=== PATIENT | male | born 1945 | race Caucasian/White ===

== ENCOUNTER 2017-02-09 09:43 | Emergency (ER) | payer MEDICARE ==
[~2017-02-09] VITALS: Ht 177.8 cm; Wt 112.9 kg
[~2017-02-09 09:43] MED LIST: HCTZ
[2017-02-09 09:45] VITALS: BP 182/95
== END 2017-02-09 11:50 | disposition home or self-care (01) ==
LOC: ED 10:27
DX: Z76.89 Persons encountering health services in other specified circumstances (principal); F17.210 Nicotine dependence, cigarettes, uncomplicated
CPT/HCPCS: 99281

== ENCOUNTER → 2017-08-08 | Outpatient (CLI) | payer MEDICARE | END | disposition home or self-care (01) | LOC: WOUND 09:16 | PROVIDERS: ATTEND Podiatrist Foot & Ankle Surgery | DX: L97.522 Non-pressure chronic ulcer of other part of left foot with fat layer exposed (principal); L97.211 Non-pressure chronic ulcer of right calf limited to breakdown of skin; M14.672 Charcot's joint, left ankle and foot; I10 Essential (primary) hypertension; J44.9 Chronic obstructive pulmonary disease, unspecified; E78.2 Mixed hyperlipidemia; E66.9 Obesity, unspecified; F17.200 Nicotine dependence, unspecified, uncomplicated; F10.10 Alcohol abuse, uncomplicated | CPT/HCPCS: 11042; 97597; 97598 ==

== ENCOUNTER → 2017-08-15 | Outpatient (CLI) | payer MEDICARE | END | disposition home or self-care (01) | LOC: WOUND 14:13 | PROVIDERS: ATTEND Podiatrist Foot & Ankle Surgery | DX: L97.211 Non-pressure chronic ulcer of right calf limited to breakdown of skin (principal); L97.522 Non-pressure chronic ulcer of other part of left foot with fat layer exposed; M14.672 Charcot's joint, left ankle and foot; I10 Essential (primary) hypertension; J44.9 Chronic obstructive pulmonary disease, unspecified; E78.2 Mixed hyperlipidemia; E66.9 Obesity, unspecified; F10.10 Alcohol abuse, uncomplicated; F17.210 Nicotine dependence, cigarettes, uncomplicated; Z68.35 Body mass index [BMI] 35.0-35.9, adult | CPT/HCPCS: 11042; 97597 ==

== ENCOUNTER → 2017-08-22 | Outpatient (CLI) | payer MEDICARE | END | disposition home or self-care (01) | LOC: WOUND 10:56 | PROVIDERS: ATTEND Podiatrist Foot & Ankle Surgery | DX: L97.522 Non-pressure chronic ulcer of other part of left foot with fat layer exposed (principal); L97.211 Non-pressure chronic ulcer of right calf limited to breakdown of skin; M14.672 Charcot's joint, left ankle and foot; J44.9 Chronic obstructive pulmonary disease, unspecified; I10 Essential (primary) hypertension; E78.2 Mixed hyperlipidemia; E66.9 Obesity, unspecified; I89.0 Lymphedema, not elsewhere classified; F17.210 Nicotine dependence, cigarettes, uncomplicated; F10.10 Alcohol abuse, uncomplicated; Z68.35 Body mass index [BMI] 35.0-35.9, adult | CPT/HCPCS: 11042; 97597 ==

== ENCOUNTER → 2017-08-29 | Outpatient (CLI) | payer MEDICARE | END | disposition home or self-care (01) | LOC: WOUND 11:15 | PROVIDERS: ATTEND Podiatrist Foot & Ankle Surgery | DX: L97.522 Non-pressure chronic ulcer of other part of left foot with fat layer exposed (principal); M14.672 Charcot's joint, left ankle and foot; L97.211 Non-pressure chronic ulcer of right calf limited to breakdown of skin; J44.9 Chronic obstructive pulmonary disease, unspecified; E78.2 Mixed hyperlipidemia; E66.9 Obesity, unspecified; F17.210 Nicotine dependence, cigarettes, uncomplicated; Z68.35 Body mass index [BMI] 35.0-35.9, adult; Z72.89 Other problems related to lifestyle | CPT/HCPCS: 11042 ==

== ENCOUNTER → 2017-09-05 | Outpatient (CLI) | payer MEDICARE | END | disposition home or self-care (01) | LOC: WOUND 11:15 | PROVIDERS: ATTEND Podiatrist Foot & Ankle Surgery | DX: L97.522 Non-pressure chronic ulcer of other part of left foot with fat layer exposed (principal); L97.211 Non-pressure chronic ulcer of right calf limited to breakdown of skin; M14.672 Charcot's joint, left ankle and foot; J44.9 Chronic obstructive pulmonary disease, unspecified; E78.2 Mixed hyperlipidemia; E66.9 Obesity, unspecified; I10 Essential (primary) hypertension; I89.0 Lymphedema, not elsewhere classified; F17.210 Nicotine dependence, cigarettes, uncomplicated; F10.10 Alcohol abuse, uncomplicated; Z68.35 Body mass index [BMI] 35.0-35.9, adult; Z72.89 Other problems related to lifestyle | CPT/HCPCS: 11042 ==

== ENCOUNTER 2017-09-12 12:39 | Emergency (ER) | payer MEDICARE ==
[~2017-09-12] VITALS: Ht 177.8 cm; Wt 116.9 kg
[2017-09-12 16:05] LABS: BASOPHILS # (AUTO) 0.02 x10^3/uL (0-0.1); BASOPHILS % (AUTO) 0 % (0-1); EOSINOPHILS # (AUTO) 0.26 x10^3/uL (0-0.4); EOSINOPHILS % (AUTO) 3 % (1-7); LYMPHOCYTES # (AUTO) 1.68 x10^3/uL (1-3.4); LYMPHOCYTES % (AUTO) 19 % (22-44); MD NO; MEAN CORPUSCULAR HEMOGLOBIN 35.8 pg (27.5-34.5); MEAN CORPUSCULAR HGB CONC 33.7 g/dL (33.2-36.2); MEAN PLATELET VOLUME 7.5 fL (7.4-10.4); MONOCYTES # (AUTO) 0.91 x10^3/uL (0.2-0.8); MONOCYTES % (AUTO) 10 % (2-9); NEUTROPHILS # (AUTO) 6.23 x10^3/uL (1.8-6.8); NEUTROPHILS % (AUTO) 68 % (42-75); PLATELET COUNT 201 x10^3/uL (130-400); RED BLOOD COUNT 4.65 x10^6/uL (4.38-5.82)
[2017-09-12 16:16] LABS: ALBUMIN 3.8 g/dL (3.4-5.0); ANION GAP 10 mmol/L (5-15); CALCIUM 9.1 mg/dL (8.5-10.1); CHLORIDE 100 mmol/L (98-107); CREATININE 0.79 mg/dL (0.7-1.3)
[2017-09-12 16:19] LABS: TROPONIN I < 0.015 ng/mL (0.000-0.045)
[2017-09-12 16:37] VITALS: BP 169/83
== END 2017-09-12 17:35 | disposition home or self-care (01) ==
LOC: ED 16:16
DX: I10 Essential (primary) hypertension (principal)
CPT/HCPCS: 36415; 71045; 80048; 82040; 84484; 85025; 93005; 99285

== ENCOUNTER → 2017-09-12 | Outpatient (CLI) | payer MEDICARE | END | disposition home or self-care (01) | LOC: WOUND 11:16 | PROVIDERS: ATTEND Podiatrist Foot & Ankle Surgery | DX: L97.522 Non-pressure chronic ulcer of other part of left foot with fat layer exposed (principal); L97.211 Non-pressure chronic ulcer of right calf limited to breakdown of skin; M14.672 Charcot's joint, left ankle and foot; I10 Essential (primary) hypertension; J44.9 Chronic obstructive pulmonary disease, unspecified; I89.0 Lymphedema, not elsewhere classified; E78.2 Mixed hyperlipidemia; E66.9 Obesity, unspecified; F10.10 Alcohol abuse, uncomplicated; F17.210 Nicotine dependence, cigarettes, uncomplicated; Z68.35 Body mass index [BMI] 35.0-35.9, adult | CPT/HCPCS: 97597; G0463; WOU0463 ==

== ENCOUNTER → 2017-09-19 | Outpatient (CLI) | payer MEDICARE | END | disposition home or self-care (01) | LOC: WOUND 11:00 | PROVIDERS: ATTEND Podiatrist Foot & Ankle Surgery | DX: L97.522 Non-pressure chronic ulcer of other part of left foot with fat layer exposed (principal); L97.211 Non-pressure chronic ulcer of right calf limited to breakdown of skin; M14.672 Charcot's joint, left ankle and foot; F10.10 Alcohol abuse, uncomplicated; J44.9 Chronic obstructive pulmonary disease, unspecified; I10 Essential (primary) hypertension; I89.0 Lymphedema, not elsewhere classified; E78.2 Mixed hyperlipidemia; F17.210 Nicotine dependence, cigarettes, uncomplicated; E66.9 Obesity, unspecified; Z68.35 Body mass index [BMI] 35.0-35.9, adult; Z72.89 Other problems related to lifestyle | CPT/HCPCS: 11042 ==

== ENCOUNTER → 2017-09-26 | Outpatient (CLI) | payer MEDICARE | END | disposition home or self-care (01) | LOC: WOUND 11:14 | PROVIDERS: ATTEND Podiatrist Foot & Ankle Surgery | DX: L97.522 Non-pressure chronic ulcer of other part of left foot with fat layer exposed (principal); L97.211 Non-pressure chronic ulcer of right calf limited to breakdown of skin; M14.672 Charcot's joint, left ankle and foot; J44.9 Chronic obstructive pulmonary disease, unspecified; I10 Essential (primary) hypertension; I89.0 Lymphedema, not elsewhere classified; E78.2 Mixed hyperlipidemia; E66.9 Obesity, unspecified; F10.10 Alcohol abuse, uncomplicated; F17.210 Nicotine dependence, cigarettes, uncomplicated; Z72.89 Other problems related to lifestyle; Z68.35 Body mass index [BMI] 35.0-35.9, adult | CPT/HCPCS: 97597 ==

== ENCOUNTER → 2017-10-03 | Outpatient (CLI) | payer MEDICARE | END | disposition home or self-care (01) | LOC: WOUND 10:53 | PROVIDERS: ATTEND Podiatrist Foot & Ankle Surgery | DX: L97.522 Non-pressure chronic ulcer of other part of left foot with fat layer exposed (principal); L97.211 Non-pressure chronic ulcer of right calf limited to breakdown of skin; M14.672 Charcot's joint, left ankle and foot; I10 Essential (primary) hypertension; J44.9 Chronic obstructive pulmonary disease, unspecified; E78.2 Mixed hyperlipidemia; F10.10 Alcohol abuse, uncomplicated; E66.9 Obesity, unspecified; F17.210 Nicotine dependence, cigarettes, uncomplicated; I89.0 Lymphedema, not elsewhere classified; L84 Corns and callosities; Z68.35 Body mass index [BMI] 35.0-35.9, adult; Z72.89 Other problems related to lifestyle | CPT/HCPCS: 97597 ==

== ENCOUNTER → 2017-10-10 | Outpatient (CLI) | payer MEDICARE | END | disposition home or self-care (01) | LOC: WOUND 11:14 | PROVIDERS: ATTEND Podiatrist Foot & Ankle Surgery | DX: L97.522 Non-pressure chronic ulcer of other part of left foot with fat layer exposed (principal); J44.9 Chronic obstructive pulmonary disease, unspecified; E78.2 Mixed hyperlipidemia; I10 Essential (primary) hypertension; L84 Corns and callosities; E66.9 Obesity, unspecified; I89.0 Lymphedema, not elsewhere classified; M14.672 Charcot's joint, left ankle and foot; F10.10 Alcohol abuse, uncomplicated; Z72.89 Other problems related to lifestyle; Z68.35 Body mass index [BMI] 35.0-35.9, adult | CPT/HCPCS: 11042 ==

== ENCOUNTER → 2017-10-17 | Outpatient (CLI) | payer MEDICARE | END | disposition home or self-care (01) | LOC: WOUND 10:42 | PROVIDERS: ATTEND Podiatrist Foot & Ankle Surgery | DX: L97.522 Non-pressure chronic ulcer of other part of left foot with fat layer exposed (principal); I10 Essential (primary) hypertension; J44.9 Chronic obstructive pulmonary disease, unspecified; E78.2 Mixed hyperlipidemia; E66.9 Obesity, unspecified; M14.672 Charcot's joint, left ankle and foot; L84 Corns and callosities; I89.0 Lymphedema, not elsewhere classified; F10.10 Alcohol abuse, uncomplicated; F17.210 Nicotine dependence, cigarettes, uncomplicated; Z68.35 Body mass index [BMI] 35.0-35.9, adult | CPT/HCPCS: 97597 ==

== ENCOUNTER → 2017-10-24 | Outpatient (CLI) | payer MEDICARE | END | disposition home or self-care (01) | LOC: WOUND 11:07 | PROVIDERS: ATTEND Podiatrist Foot & Ankle Surgery | DX: E11.621 Type 2 diabetes mellitus with foot ulcer (principal); L97.522 Non-pressure chronic ulcer of other part of left foot with fat layer exposed; E11.610 Type 2 diabetes mellitus with diabetic neuropathic arthropathy; J44.9 Chronic obstructive pulmonary disease, unspecified; E78.5 Hyperlipidemia, unspecified; I10 Essential (primary) hypertension; L84 Corns and callosities; I89.0 Lymphedema, not elsewhere classified; E66.9 Obesity, unspecified; F17.210 Nicotine dependence, cigarettes, uncomplicated; F10.10 Alcohol abuse, uncomplicated; Z68.35 Body mass index [BMI] 35.0-35.9, adult | CPT/HCPCS: 97597 ==

== ENCOUNTER → 2017-10-31 | Outpatient (CLI) | payer MEDICARE | END | disposition home or self-care (01) | LOC: WOUND 11:00 | PROVIDERS: ATTEND Podiatrist Foot & Ankle Surgery | DX: E11.621 Type 2 diabetes mellitus with foot ulcer (principal); L97.522 Non-pressure chronic ulcer of other part of left foot with fat layer exposed; E11.610 Type 2 diabetes mellitus with diabetic neuropathic arthropathy; J44.9 Chronic obstructive pulmonary disease, unspecified; I10 Essential (primary) hypertension; E78.5 Hyperlipidemia, unspecified; E66.9 Obesity, unspecified; E78.2 Mixed hyperlipidemia; F17.210 Nicotine dependence, cigarettes, uncomplicated; F10.10 Alcohol abuse, uncomplicated; Z68.35 Body mass index [BMI] 35.0-35.9, adult | CPT/HCPCS: 97597 ==

== ENCOUNTER → 2017-11-07 | Outpatient (CLI) | payer MEDICARE | END | disposition home or self-care (01) | LOC: WOUND 11:21 | PROVIDERS: ATTEND Podiatrist Foot & Ankle Surgery | DX: E11.621 Type 2 diabetes mellitus with foot ulcer (principal); L97.522 Non-pressure chronic ulcer of other part of left foot with fat layer exposed; F10.10 Alcohol abuse, uncomplicated; J44.9 Chronic obstructive pulmonary disease, unspecified; I10 Essential (primary) hypertension; E78.2 Mixed hyperlipidemia; E66.9 Obesity, unspecified; E11.610 Type 2 diabetes mellitus with diabetic neuropathic arthropathy; I89.0 Lymphedema, not elsewhere classified; F17.210 Nicotine dependence, cigarettes, uncomplicated; Z72.89 Other problems related to lifestyle; Z68.35 Body mass index [BMI] 35.0-35.9, adult | CPT/HCPCS: 11042 ==

== ENCOUNTER → 2017-11-14 | Outpatient (CLI) | payer MEDICARE | END | disposition home or self-care (01) | LOC: WOUND 11:00 | PROVIDERS: ATTEND Podiatrist Foot & Ankle Surgery | DX: E11.621 Type 2 diabetes mellitus with foot ulcer (principal); L97.522 Non-pressure chronic ulcer of other part of left foot with fat layer exposed; E11.610 Type 2 diabetes mellitus with diabetic neuropathic arthropathy; J44.9 Chronic obstructive pulmonary disease, unspecified; I10 Essential (primary) hypertension; I89.0 Lymphedema, not elsewhere classified; E78.2 Mixed hyperlipidemia; E66.9 Obesity, unspecified; F17.210 Nicotine dependence, cigarettes, uncomplicated; F10.10 Alcohol abuse, uncomplicated; Z72.89 Other problems related to lifestyle | CPT/HCPCS: 11042; 87070; 87077; 87186; 87205 ==

== ENCOUNTER → 2017-11-21 | Outpatient (CLI) | payer MEDICARE | END | disposition home or self-care (01) | LOC: WOUND 13:58 | PROVIDERS: ATTEND Podiatrist Foot & Ankle Surgery | DX: E11.621 Type 2 diabetes mellitus with foot ulcer (principal); L97.522 Non-pressure chronic ulcer of other part of left foot with fat layer exposed; E11.610 Type 2 diabetes mellitus with diabetic neuropathic arthropathy; I10 Essential (primary) hypertension; J44.9 Chronic obstructive pulmonary disease, unspecified; E78.5 Hyperlipidemia, unspecified; G47.00 Insomnia, unspecified; E66.9 Obesity, unspecified; I89.0 Lymphedema, not elsewhere classified; F17.210 Nicotine dependence, cigarettes, uncomplicated; Z68.35 Body mass index [BMI] 35.0-35.9, adult | CPT/HCPCS: 11042 ==

== ENCOUNTER → 2017-11-28 | Outpatient (CLI) | payer MEDICARE | END | disposition home or self-care (01) | LOC: WOUND 08:30 | PROVIDERS: ATTEND Podiatrist Foot & Ankle Surgery | DX: E11.621 Type 2 diabetes mellitus with foot ulcer (principal); L97.522 Non-pressure chronic ulcer of other part of left foot with fat layer exposed; J44.9 Chronic obstructive pulmonary disease, unspecified; I10 Essential (primary) hypertension; E78.5 Hyperlipidemia, unspecified; I89.0 Lymphedema, not elsewhere classified; E11.610 Type 2 diabetes mellitus with diabetic neuropathic arthropathy; E78.2 Mixed hyperlipidemia; E66.9 Obesity, unspecified; F17.210 Nicotine dependence, cigarettes, uncomplicated; F10.10 Alcohol abuse, uncomplicated; Z68.35 Body mass index [BMI] 35.0-35.9, adult | CPT/HCPCS: 11042 ==

== ENCOUNTER → 2017-12-05 | Outpatient (CLI) | payer MEDICARE | END | disposition home or self-care (01) | LOC: WOUND 09:15 | PROVIDERS: ATTEND Podiatrist Foot & Ankle Surgery | DX: E11.621 Type 2 diabetes mellitus with foot ulcer (principal); L97.522 Non-pressure chronic ulcer of other part of left foot with fat layer exposed; J44.9 Chronic obstructive pulmonary disease, unspecified; I10 Essential (primary) hypertension; E78.5 Hyperlipidemia, unspecified; I89.0 Lymphedema, not elsewhere classified; E78.2 Mixed hyperlipidemia; E66.9 Obesity, unspecified; E11.610 Type 2 diabetes mellitus with diabetic neuropathic arthropathy; F10.10 Alcohol abuse, uncomplicated; F17.210 Nicotine dependence, cigarettes, uncomplicated; Z68.35 Body mass index [BMI] 35.0-35.9, adult | CPT/HCPCS: 11042 ==

== ENCOUNTER → 2017-12-19 | Outpatient (CLI) | payer MEDICARE | END | disposition home or self-care (01) | LOC: WOUND 10:29 | PROVIDERS: ATTEND Podiatrist Foot & Ankle Surgery | DX: L97.522 Non-pressure chronic ulcer of other part of left foot with fat layer exposed (principal); J44.9 Chronic obstructive pulmonary disease, unspecified; I10 Essential (primary) hypertension; I89.0 Lymphedema, not elsewhere classified; E78.2 Mixed hyperlipidemia; E66.9 Obesity, unspecified; E11.610 Type 2 diabetes mellitus with diabetic neuropathic arthropathy; F10.10 Alcohol abuse, uncomplicated; F17.210 Nicotine dependence, cigarettes, uncomplicated; Z68.35 Body mass index [BMI] 35.0-35.9, adult; Z72.89 Other problems related to lifestyle | CPT/HCPCS: 11042; 87070; 87077; 87186; 87205 ==

== ENCOUNTER → 2017-12-26 | Outpatient (CLI) | payer MEDICARE | END | disposition home or self-care (01) | LOC: WOUND 11:08 | PROVIDERS: ATTEND Podiatrist Foot & Ankle Surgery | DX: E11.622 Type 2 diabetes mellitus with other skin ulcer (principal); L97.211 Non-pressure chronic ulcer of right calf limited to breakdown of skin; E11.621 Type 2 diabetes mellitus with foot ulcer; L97.522 Non-pressure chronic ulcer of other part of left foot with fat layer exposed; J44.9 Chronic obstructive pulmonary disease, unspecified; I10 Essential (primary) hypertension; I89.0 Lymphedema, not elsewhere classified; E78.2 Mixed hyperlipidemia; E11.610 Type 2 diabetes mellitus with diabetic neuropathic arthropathy; F17.210 Nicotine dependence, cigarettes, uncomplicated; F10.10 Alcohol abuse, uncomplicated; E66.9 Obesity, unspecified; Z68.35 Body mass index [BMI] 35.0-35.9, adult; Z72.89 Other problems related to lifestyle | CPT/HCPCS: 97597; 97598 ==

== ENCOUNTER → 2017-12-31 | Outpatient (CLI) | payer MEDICARE | END | disposition home or self-care (01) | LOC: WOUND 10:41 | PROVIDERS: ATTEND Internal Medicine Infectious Disease | DX: E11.621 Type 2 diabetes mellitus with foot ulcer (principal); L97.522 Non-pressure chronic ulcer of other part of left foot with fat layer exposed; E11.622 Type 2 diabetes mellitus with other skin ulcer; L97.211 Non-pressure chronic ulcer of right calf limited to breakdown of skin; E11.610 Type 2 diabetes mellitus with diabetic neuropathic arthropathy; I89.0 Lymphedema, not elsewhere classified; J44.9 Chronic obstructive pulmonary disease, unspecified; I10 Essential (primary) hypertension; E78.2 Mixed hyperlipidemia; E66.9 Obesity, unspecified; E78.5 Hyperlipidemia, unspecified; F10.10 Alcohol abuse, uncomplicated; F17.210 Nicotine dependence, cigarettes, uncomplicated; Z72.89 Other problems related to lifestyle | CPT/HCPCS: 97597 ==

== ENCOUNTER → 2018-01-09 | Outpatient (CLI) | payer MEDICARE | END | disposition home or self-care (01) | LOC: WOUND 11:10 | PROVIDERS: ATTEND Podiatrist Foot & Ankle Surgery | DX: L97.522 Non-pressure chronic ulcer of other part of left foot with fat layer exposed (principal); L97.211 Non-pressure chronic ulcer of right calf limited to breakdown of skin; I89.0 Lymphedema, not elsewhere classified; J44.9 Chronic obstructive pulmonary disease, unspecified; E66.9 Obesity, unspecified; E11.610 Type 2 diabetes mellitus with diabetic neuropathic arthropathy; E78.2 Mixed hyperlipidemia; F17.210 Nicotine dependence, cigarettes, uncomplicated; F10.10 Alcohol abuse, uncomplicated; Z68.35 Body mass index [BMI] 35.0-35.9, adult | CPT/HCPCS: 97597 ==

== ENCOUNTER → 2018-01-23 | Outpatient (CLI) | payer MEDICARE | END | disposition home or self-care (01) | LOC: WOUND 09:19 | PROVIDERS: ATTEND Podiatrist Foot & Ankle Surgery | DX: E11.621 Type 2 diabetes mellitus with foot ulcer (principal); L97.522 Non-pressure chronic ulcer of other part of left foot with fat layer exposed; I89.0 Lymphedema, not elsewhere classified; J44.9 Chronic obstructive pulmonary disease, unspecified; I10 Essential (primary) hypertension; E78.2 Mixed hyperlipidemia; E66.9 Obesity, unspecified; E11.610 Type 2 diabetes mellitus with diabetic neuropathic arthropathy; F10.10 Alcohol abuse, uncomplicated; F17.210 Nicotine dependence, cigarettes, uncomplicated; Z68.35 Body mass index [BMI] 35.0-35.9, adult | CPT/HCPCS: 15275; Q4132 ==

== ENCOUNTER → 2018-02-06 | Outpatient (CLI) | payer MEDICARE | END | disposition home or self-care (01) | LOC: WOUND 09:30 | PROVIDERS: ATTEND Podiatrist Foot & Ankle Surgery | DX: E11.621 Type 2 diabetes mellitus with foot ulcer (principal); L97.522 Non-pressure chronic ulcer of other part of left foot with fat layer exposed; E11.622 Type 2 diabetes mellitus with other skin ulcer; L97.211 Non-pressure chronic ulcer of right calf limited to breakdown of skin; I89.0 Lymphedema, not elsewhere classified; J44.9 Chronic obstructive pulmonary disease, unspecified; I10 Essential (primary) hypertension; E78.2 Mixed hyperlipidemia; E11.610 Type 2 diabetes mellitus with diabetic neuropathic arthropathy; E66.9 Obesity, unspecified; F17.210 Nicotine dependence, cigarettes, uncomplicated; F10.10 Alcohol abuse, uncomplicated; Z68.35 Body mass index [BMI] 35.0-35.9, adult | CPT/HCPCS: 15275; Q4133 ==

== ENCOUNTER → 2018-02-13 | Outpatient (CLI) | payer MEDICARE | END | disposition home or self-care (01) | LOC: WOUND 10:00 | PROVIDERS: ATTEND Podiatrist Foot & Ankle Surgery | DX: E11.621 Type 2 diabetes mellitus with foot ulcer (principal); L97.522 Non-pressure chronic ulcer of other part of left foot with fat layer exposed; E11.622 Type 2 diabetes mellitus with other skin ulcer; L97.211 Non-pressure chronic ulcer of right calf limited to breakdown of skin; I89.0 Lymphedema, not elsewhere classified; E11.610 Type 2 diabetes mellitus with diabetic neuropathic arthropathy; J44.9 Chronic obstructive pulmonary disease, unspecified; I10 Essential (primary) hypertension; E78.2 Mixed hyperlipidemia; E66.9 Obesity, unspecified; F10.10 Alcohol abuse, uncomplicated; F17.210 Nicotine dependence, cigarettes, uncomplicated; Z68.35 Body mass index [BMI] 35.0-35.9, adult | CPT/HCPCS: 15275; Q4133 ==

== ENCOUNTER → 2018-02-20 | Outpatient (CLI) | payer MEDICARE | END | disposition home or self-care (01) | LOC: WOUND 09:49 | PROVIDERS: ATTEND Podiatrist Foot & Ankle Surgery | DX: E11.621 Type 2 diabetes mellitus with foot ulcer (principal); L97.522 Non-pressure chronic ulcer of other part of left foot with fat layer exposed; E11.622 Type 2 diabetes mellitus with other skin ulcer; L97.211 Non-pressure chronic ulcer of right calf limited to breakdown of skin; I89.0 Lymphedema, not elsewhere classified; E11.610 Type 2 diabetes mellitus with diabetic neuropathic arthropathy; E78.2 Mixed hyperlipidemia; E66.9 Obesity, unspecified; G47.00 Insomnia, unspecified; J44.9 Chronic obstructive pulmonary disease, unspecified; I10 Essential (primary) hypertension; F10.10 Alcohol abuse, uncomplicated; F17.210 Nicotine dependence, cigarettes, uncomplicated; Z68.35 Body mass index [BMI] 35.0-35.9, adult | CPT/HCPCS: 15275; Q4133 ==

== ENCOUNTER → 2018-02-27 | Outpatient (CLI) | payer MEDICARE | END | disposition home or self-care (01) | LOC: WOUND 10:29 | PROVIDERS: ATTEND Podiatrist Foot & Ankle Surgery | DX: E11.621 Type 2 diabetes mellitus with foot ulcer (principal); L97.522 Non-pressure chronic ulcer of other part of left foot with fat layer exposed; L84 Corns and callosities; E11.622 Type 2 diabetes mellitus with other skin ulcer; L97.211 Non-pressure chronic ulcer of right calf limited to breakdown of skin; I89.0 Lymphedema, not elsewhere classified; E11.610 Type 2 diabetes mellitus with diabetic neuropathic arthropathy; E78.2 Mixed hyperlipidemia; E66.9 Obesity, unspecified; G47.00 Insomnia, unspecified; J44.9 Chronic obstructive pulmonary disease, unspecified; I10 Essential (primary) hypertension; F10.10 Alcohol abuse, uncomplicated; F17.210 Nicotine dependence, cigarettes, uncomplicated; Z68.35 Body mass index [BMI] 35.0-35.9, adult | CPT/HCPCS: 97597 ==

== ENCOUNTER → 2018-03-06 | Outpatient (CLI) | payer MEDICARE | END | disposition home or self-care (01) | LOC: WOUND 10:00 | PROVIDERS: ATTEND Podiatrist Foot & Ankle Surgery | DX: E11.621 Type 2 diabetes mellitus with foot ulcer (principal); L97.522 Non-pressure chronic ulcer of other part of left foot with fat layer exposed; E11.622 Type 2 diabetes mellitus with other skin ulcer; L97.221 Non-pressure chronic ulcer of left calf limited to breakdown of skin; I89.0 Lymphedema, not elsewhere classified; J44.9 Chronic obstructive pulmonary disease, unspecified; E78.2 Mixed hyperlipidemia; E66.9 Obesity, unspecified; E11.610 Type 2 diabetes mellitus with diabetic neuropathic arthropathy; F10.10 Alcohol abuse, uncomplicated; F17.210 Nicotine dependence, cigarettes, uncomplicated; Z68.35 Body mass index [BMI] 35.0-35.9, adult | CPT/HCPCS: 11042 ==

== ENCOUNTER → 2018-03-13 | Outpatient (CLI) | payer MEDICARE | END | disposition home or self-care (01) | LOC: WOUND 10:00 | PROVIDERS: ATTEND Podiatrist Foot & Ankle Surgery | DX: E11.621 Type 2 diabetes mellitus with foot ulcer (principal); L97.522 Non-pressure chronic ulcer of other part of left foot with fat layer exposed; E11.622 Type 2 diabetes mellitus with other skin ulcer; L97.221 Non-pressure chronic ulcer of left calf limited to breakdown of skin; I89.0 Lymphedema, not elsewhere classified; J44.9 Chronic obstructive pulmonary disease, unspecified; E78.2 Mixed hyperlipidemia; E66.9 Obesity, unspecified; E11.610 Type 2 diabetes mellitus with diabetic neuropathic arthropathy; F10.10 Alcohol abuse, uncomplicated; F17.210 Nicotine dependence, cigarettes, uncomplicated; Z68.35 Body mass index [BMI] 35.0-35.9, adult | CPT/HCPCS: 11042 ==

== ENCOUNTER → 2018-03-27 | Outpatient (CLI) | payer MEDICARE | END | disposition home or self-care (01) | LOC: WOUND 10:35 | PROVIDERS: ATTEND Podiatrist Foot & Ankle Surgery | DX: E11.621 Type 2 diabetes mellitus with foot ulcer (principal); L97.522 Non-pressure chronic ulcer of other part of left foot with fat layer exposed; E11.622 Type 2 diabetes mellitus with other skin ulcer; L97.211 Non-pressure chronic ulcer of right calf limited to breakdown of skin; I89.0 Lymphedema, not elsewhere classified; E11.610 Type 2 diabetes mellitus with diabetic neuropathic arthropathy; G89.4 Chronic pain syndrome; J44.9 Chronic obstructive pulmonary disease, unspecified; E11.42 Type 2 diabetes mellitus with diabetic polyneuropathy; E78.2 Mixed hyperlipidemia; E66.9 Obesity, unspecified; L84 Corns and callosities; F17.210 Nicotine dependence, cigarettes, uncomplicated; F10.10 Alcohol abuse, uncomplicated; Z68.35 Body mass index [BMI] 35.0-35.9, adult | CPT/HCPCS: 97597 ==

== ENCOUNTER 2019-07-16 09:34 | Outpatient (CLI) | payer MEDICARE ==
[2019-07-19] MEDS ORDERED: DOXY-162 PO (08:51)
[2019-07-19] MEDS ORDERED: CARV3.1212 PO (08:51)
[2019-07-19] MEDS ORDERED: LISI-170 PO (08:51)
== END 2019-07-16 23:59 | disposition home or self-care (01) ==
LOC: WOUND 09:34
PROVIDERS: ATTEND Podiatrist Foot & Ankle Surgery
DX: I87.333 Chronic venous hypertension (idiopathic) with ulcer and inflammation of bilateral lower extremity (principal); L97.222 Non-pressure chronic ulcer of left calf with fat layer exposed; L97.212 Non-pressure chronic ulcer of right calf with fat layer exposed; L97.522 Non-pressure chronic ulcer of other part of left foot with fat layer exposed; M14.672 Charcot's joint, left ankle and foot; I89.0 Lymphedema, not elsewhere classified; J44.1 Chronic obstructive pulmonary disease with (acute) exacerbation; I11.0 Hypertensive heart disease with heart failure; I50.33 Acute on chronic diastolic (congestive) heart failure; E66.01 Morbid (severe) obesity due to excess calories; F10.10 Alcohol abuse, uncomplicated; F17.210 Nicotine dependence, cigarettes, uncomplicated; E78.2 Mixed hyperlipidemia; G47.00 Insomnia, unspecified; E44.1 Mild protein-calorie malnutrition; L84 Corns and callosities; R32 Unspecified urinary incontinence; R26.9 Unspecified abnormalities of gait and mobility; Z68.34 Body mass index [BMI] 34.0-34.9, adult
CPT/HCPCS: G0463

== ENCOUNTER 2019-07-21 20:28 | Inpatient (IN) | payer MEDICARE ==
[~2019-07-21] VITALS: Ht 177.8 cm; Wt 108.4 kg
[~2019-07-21 20:28] MED LIST changes: +CARV3.1212 PO; +DOXY-162 PO; +LISI-170 PO
--- NOTE | 2019-07-21 20:53 | NUR ---
BIB EMS FROM HOME. PT WAS D/C FROM [facility] ON WEDNESDAY 10/11 CELLULITIS. PT LIVES ALONE WITH FAMILY NEAR BY. PT WAS NOT ANSWERING PHONE AND FAMILY WENT TO CHECK ON HIM. PT HAD SOILED HIMSELF AND WAS SOMEWHAT CONFUSED. 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 PT WITH SEVERE LOWER EXT. EDEMA AND SKIN THAT LOOKS LIKE LIZZARD SKIN. DRESSING OVER RIGHT LOWER LEG. PT CLEANED OF DRIED STOOL AND CHANGED INTO GOWN. CLOTHES WERE SOILED WITH BOTH STOOL AND DRIED URINE. PT IS PLEASANT AND COOPERATIVE, DENIES PAIN. VSS, NADN. AUDIBLES RALES NOTED. CALL LIGHT W/I REACH SBAR RPT TO BRIEN RODAS.
[2019-07-21] MEDS ORDERED: hydrALAzine 20 MG/ML, 1ML ONE (21:13)
--- NOTE | 2019-07-21 21:28 | NUR ---
CXR AT BS. PHLEB AT BS. MEDS PER NOV. FAMILY AT BS. ALEX PROVIDED. CALL LIGHT PEPITO.
[2019-07-21] MEDS ORDERED: SODIUM CHLORIDE FLUSH 10ML SYR IVF ONE (21:30)
[2019-07-21] MEDS ORDERED: SODIUM CHLORIDE 0.9% 1,000ML IVBOLUS ONE (21:30)
[2019-07-21] MEDS ORDERED: hydrALAzine 20 MG/ML, 1ML IV ONE (21:30)
[2019-07-21 21:36] LABS: MEAN CORPUSCULAR HEMOGLOBIN 35.5 pg (27.5-34.5); MEAN CORPUSCULAR HGB CONC 33.1 g/dL (33.2-36.2); MEAN CORPUSCULAR VOLUME 107.4 fL (81-97); MEAN PLATELET VOLUME 7.5 fL (7.4-10.4); PLATELET COUNT 162 x10^3/uL (130-400); RED BLOOD COUNT 4.04 x10^6/uL (4.38-5.82); RED CELL DISTRIBUTION WIDTH 14.9 % (9.4-14.8)
[2019-07-21 21:42] LABS: ALANINE AMINOTRANSFERASE 21 U/L (12-78); ALBUMIN 3.4 g/dL (3.4-5.0); ANION GAP 7 mmol/L (5-15); CALCIUM 8.7 mg/dL (8.5-10.1); CHLORIDE 100 mmol/L (98-107); CREATININE 0.85 mg/dL (0.7-1.3)
[2019-07-21 21:46] LABS: ALKALINE PHOSPHATASE 32 U/L (45-117); BILIRUBIN,TOTAL 0.7 mg/dL (0.2-1.0); TOTAL PROTEIN 7.9 g/dL (6.4-8.2); TROPONIN I < 0.015 ng/mL (0.000-0.045)
--- NOTE | 2019-07-21 21:58 | NUR ---
DRESSING REMOVED FROM RLE. STATES DRESSING HAS NOT BEEN CHANGED SINCE DC FROM HERE ON 07/18/19. WEEPING NOTED, DRESSING SATURATED & CRUSTED TO FOOT.
[2019-07-21 22:28] LABS: MD YES
[2019-07-21 22:31] LABS: BAND#(MANUAL) 0.05 x10^3/uL; BANDS%(MANUAL) 1 % (0-7); BASOS#(MANUAL) 0.05 x10^3/uL (0-0.1); BASOS% (MANUAL) 1 % (0-1); EOS#(MANUAL) 0.05 x10^3/uL (0.0-0.4); EOS% (MANUAL) 1 % (1-7); LYMPH#(MANUAL) 0.74 x10^3/uL (1-3.4); LYMPHS% (MANUAL) 15 % (22-44); MONOS#(MANUAL) 1.08 x10^3/uL (0.3-2.7); MONOS% (MANUAL) 22 % (2-9); SEG#(MANUAL) 2.94 x10^3/uL (1.8-6.8); SEGS% (MANUAL) 60 % (42-75)
[2019-07-21 22:32] LABS: <PLATELET ESTIMATE> ADEQUATE; <PLT MORPHOLOGY> NORMAL PLT MORPH; ANISOCYTOSIS 1+
[2019-07-22] MEDS ORDERED: SODIUM CHLORIDE FLUSH 10ML SYR IVF PRN (01:30)
[2019-07-22 02:26] VITALS: BP 193/83
[2019-07-22] MEDS ORDERED: THIAMINE 200 MG in SODIUM CHLORIDE 0.9% 50 ML IV ONE (02:30)
[2019-07-22] MEDS ORDERED: ONDANSETRON 2MG/ML, 2ML IVPush PRN (02:30)
[2019-07-22] MEDS ORDERED: ACETAMINOPHEN 325 MG TABLET PO PRN (02:30)
[2019-07-22] MEDS ORDERED: hydrALAzine 20 MG/ML, 1ML IVPush PRN (02:30)
[2019-07-22] MEDS ORDERED: ALBUTEROL SULFATE 2.5 MG/3 ML NPPB PRN (03:00)
[2019-07-22] MEDS ORDERED: FUROSEMIDE 20 MG/2 ML ONE (03:13)
[2019-07-22] MEDS ORDERED: FUROSEMIDE 20 MG/2 ML IV ONE (03:30)
[2019-07-22] MEDS ORDERED: MAGNESIUM SULFATE PMX 2GM/50ML 50 ML IV ONE (03:30)
[2019-07-22 03:33] VITALS: BP 173/80
[2019-07-22] MEDS: DOXYCYCLINE 100 MG in DEXTROSE 5% 250 ML IV SCH ×2 (03:35→14:46)
[2019-07-22 04:27] LABS: MICROSCOPIC NOT IND
[2019-07-22 04:37] LABS: CULTURE INDICATED? NO
[2019-07-22 04:38] LABS: AMPHETAMINE SCREEN, URINE Negative (Negative); BARBITURATE SCREEN, URINE Negative (Negative); BENZODIAZEPINE SCREEN, URINE Negative (Negative); CANNABINOID SCREEN, URINE Negative (Negative); COCAINE SCREEN, URINE Negative (Negative); METHADONE SCREEN, URINE Negative (Negative); OPIATE SCREEN, URINE Negative (Negative)
[2019-07-22 04:45] VITALS: BP 154/79
[2019-07-22] MEDS: CARVEDILOL 3.125 MG TABLET PO SCH ×2 (06:17→17:04)
[2019-07-22] MEDS ORDERED: FUROSEMIDE 20 MG/2 ML IV SCH (07:30)
[2019-07-22] MEDS: SENNA/DOCUSATE TABLET PO SCH (08:03)
[2019-07-22] MEDS: LISINOPRIL 20 MG TABLET PO SCH (08:03)
[2019-07-22] MEDS: THIAMINE 100MG TABLET PO SCH (08:03)
[2019-07-22] MEDS: ENOXAPARIN 40 MG/0.4 ML SQ SCH (08:04)
[2019-07-22 08:45] VITALS: BP 150/80
[2019-07-22] MEDS: FOLIC ACID 1 MG TABLET PO SCH (11:56)
[2019-07-22] MEDS: MAGNESIUM OXIDE 400 MG TABLET PO SCH ×2 (11:57→20:53)
[2019-07-22 15:00] VITALS: BP 122/72
[2019-07-22] MEDS: FUROSEMIDE 40 MG/4 ML IV SCH (17:04)
[2019-07-22 19:12] VITALS: BP 116/71
[2019-07-23 00:17] VITALS: BP 135/67
[2019-07-23] MEDS: DOXYCYCLINE 100 MG in DEXTROSE 5% 250 ML IV SCH (02:46)
[2019-07-23 05:28] VITALS: BP 117/64
[2019-07-23] MEDS: CARVEDILOL 3.125 MG TABLET PO SCH ×2 (05:31→17:54)
[2019-07-23 05:56] LABS: HCT (SEDRATE) 41.6 % (39.2-51.8)
[2019-07-23 05:58] LABS: ALANINE AMINOTRANSFERASE 20 U/L (12-78); ALBUMIN 3.3 g/dL (3.4-5.0); ANION GAP 6 mmol/L (5-15); CALCIUM 8.6 mg/dL (8.5-10.1); CHLORIDE 103 mmol/L (98-107); CREATININE 0.96 mg/dL (0.7-1.3)
[2019-07-23 06:05] LABS: ALKALINE PHOSPHATASE 40 U/L (45-117); BILIRUBIN,TOTAL 0.8 mg/dL (0.2-1.0); TOTAL PROTEIN 7.5 g/dL (6.4-8.2)
[2019-07-23] MEDS: FUROSEMIDE 40 MG/4 ML IV SCH ×2 (07:30→17:54)
[2019-07-23] MEDS: SENNA/DOCUSATE TABLET PO SCH (09:00)
[2019-07-23] MEDS: LISINOPRIL 20 MG TABLET PO SCH (09:00)
[2019-07-23 09:40] VITALS: BP 90/48
[2019-07-23] MEDS ORDERED: POTASSIUM CHLORIDE 20 MEQ TAB.ER.PRT ONE (09:49)
[2019-07-23] MEDS: MAGNESIUM OXIDE 400 MG TABLET PO SCH ×2 (09:55→20:23)
[2019-07-23] MEDS: ENOXAPARIN 40 MG/0.4 ML SQ SCH (09:55)
[2019-07-23] MEDS: THIAMINE 100MG TABLET PO SCH (09:55)
[2019-07-23] MEDS: POTASSIUM CHLORIDE 20 MEQ TAB.ER.PRT PO SCH ×2 (09:56→17:54)
[2019-07-23] MEDS: DOXYCYCLINE 100MG TABLET PO SCH ×2 (09:56→20:23)
[2019-07-23] MEDS: FOLIC ACID 1 MG TABLET PO SCH (09:56)
[2019-07-23 14:52] VITALS: BP 131/75
[2019-07-23 17:57] VITALS: BP 136/72
[2019-07-23 19:11] VITALS: BP 158/78
[2019-07-24 00:17] VITALS: BP 157/75
[2019-07-24] MEDS ORDERED: MELATONIN 5 MG TABLET PO PRN (03:00)
[2019-07-24] MEDS ORDERED: BENZONATATE 100 MG CAPSULE PO ONE (03:00)
[2019-07-24] MEDS: CARVEDILOL 3.125 MG TABLET PO SCH (06:32)
[2019-07-24 06:54] VITALS: BP 132/72
[2019-07-24 07:31] VITALS: BP 119/72
[2019-07-24] MEDS ORDERED: POTASSIUM CHLORIDE 20 MEQ TAB.ER.PRT PO SCH (08:00)
[2019-07-24] MEDS: MAGNESIUM OXIDE 400 MG TABLET PO SCH (08:21)
[2019-07-24] MEDS: DOXYCYCLINE 100MG TABLET PO SCH (08:21)
[2019-07-24] MEDS: THIAMINE 100MG TABLET PO SCH (08:21)
[2019-07-24] MEDS: FOLIC ACID 1 MG TABLET PO SCH (08:21)
[2019-07-24] MEDS: LISINOPRIL 20 MG TABLET PO SCH (08:22)
[2019-07-24] MEDS: SENNA/DOCUSATE TABLET PO SCH (08:23)
[2019-07-24] MEDS: ENOXAPARIN 40 MG/0.4 ML SQ SCH (08:24)
[2019-07-24 08:31] LABS: ALANINE AMINOTRANSFERASE 24 U/L (12-78); ALBUMIN 3.3 g/dL (3.4-5.0); ANION GAP 5 mmol/L (5-15); CALCIUM 8.9 mg/dL (8.5-10.1); CHLORIDE 105 mmol/L (98-107)
[2019-07-24 08:34] LABS: ALKALINE PHOSPHATASE 27 U/L (45-117); BILIRUBIN,TOTAL 0.4 mg/dL (0.2-1.0); CREATININE 0.85 mg/dL (0.7-1.3); TOTAL PROTEIN 7.6 g/dL (6.4-8.2)
[2019-07-24] MEDS: FUROSEMIDE 40 MG/4 ML IV SCH (08:35)
[2019-07-24 13:02] VITALS: BP 170/70
[2019-07-24 13:35] VITALS: BP 127/72
[2019-07-24] MEDS ORDERED: POTA20TA6 PO (13:41)
[2019-07-24] MEDS ORDERED: FURO40TA6 PO (13:41)
== END 2019-07-24 15:55 | disposition hospice, inpatient (51) | DRG 189 ==
LOC: ED 07-22 00:40 → EDIP 07-22 01:24 → 4WST 07-22 02:30 → DCLOUNGE 07-24 15:45
PROVIDERS: ADMIT Family Medicine; ATTEND Internal Medicine
DX: J96.01 Acute respiratory failure with hypoxia (principal); G93.41 Metabolic encephalopathy; I50.33 Acute on chronic diastolic (congestive) heart failure; J44.1 Chronic obstructive pulmonary disease with (acute) exacerbation; E87.1 Hypo-osmolality and hyponatremia; L03.115 Cellulitis of right lower limb; L03.116 Cellulitis of left lower limb; I11.0 Hypertensive heart disease with heart failure; D75.89 Other specified diseases of blood and blood-forming organs; E83.42 Hypomagnesemia; F10.10 Alcohol abuse, uncomplicated; F17.210 Nicotine dependence, cigarettes, uncomplicated; Z51.5 Encounter for palliative care; R32 Unspecified urinary incontinence; I87.8 Other specified disorders of veins; I83.009 Varicose veins of unspecified lower extremity with ulcer of unspecified site; I16.0 Hypertensive urgency; Z91.14 Patient's other noncompliance with medication regimen
CPT/HCPCS: 36415; 70450; 71045; 80053; 80307; 81003; 82140; 82607; 83605; 83735; 83880; 84484; 85025; 85651; 86140; 87040; 93005; 93922; 93970; 96374; G0378; J1650; J1940; J3411; J7060; J0360; J3475; J7030; J7512